=== PATIENT | male | born 1990 | race Caucasian/White ===

== ENCOUNTER 2021-09-12 19:27 | Emergency (ER) | payer OTHER ==
[2021-09-12] MEDS ORDERED: IBUPROFEN800 MG PO (21:37)
== END 2021-09-12 22:00 | disposition home or self-care (01) ==
LOC: ER1 19:27
DX: S83.92XA Sprain of unspecified site of left knee, initial encounter (principal); M23.92 Unspecified internal derangement of left knee; W22.8XXA Striking against or struck by other objects, initial encounter; Y92.009 Unspecified place in unspecified non-institutional (private) residence as the place of occurrence of the external cause
CPT/HCPCS: 73564; 99283